=== PATIENT | male | born 1985 | race Caucasian/White ===

== ENCOUNTER 2018-02-05 19:45 | Emergency (ER) | payer OTHER ==
[2018-02-05 20:23] VITALS: RESP 18; TEMP 97.5
--- NOTE | 2018-02-05 21:54 | XR ---
EXAMINATION TYPE: XR shoulder complete LT DATE OF EXAM: 02/05/2018 COMPARISON: NONE HISTORY: Left shoulder pain TECHNIQUE: 3 views FINDINGS: I see no fracture nor dislocation. Joint spaces are normal. There are no pathologic calcifi cations. IMPRESSION: Negative left shoulder exam.
--- NOTE | 2018-02-05 21:55 | XR ---
EXAMINATION TYPE: XR cervical spine comp DATE OF EXAM: 02/05/2018 COMPARISON: NONE HISTORY: Neck pain TECHNIQUE: 5 views FINDINGS: Cervical vertebra have normal spacing and alignment. Posterior elements are intact. [place] axial facet joint is normal. There are no cervical ribs. IMPRESSION: Negative cervical spine exam.
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
[2018-02-05 22:48] VITALS: BP 130/66; PULSE 90
== END 2018-02-05 22:48 | disposition home or self-care (01) ==
LOC: EC 19:45
DX: M54.2 Cervicalgia (principal); M25.512 Pain in left shoulder; E11.9 Type 2 diabetes mellitus without complications; Z79.84 Long term (current) use of oral hypoglycemic drugs; V43.52XA Car driver injured in collision with other type car in traffic accident, initial encounter; Y92.410 Unspecified street and highway as the place of occurrence of the external cause
CPT/HCPCS: 72050; 99284